=== PATIENT | male | born 1965 | race Caucasian/White ===

== ENCOUNTER 2018-01-09 06:06 | Day surgery (SDC) | payer BC ==
[~2018-01-09] VITALS: Ht 185.4 cm; Wt 117.4 kg
[~2018-01-09 06:06] MED LIST: ASPIRIN E.C. 8181 MG PO; FOLIC ACID0.4 MG PO; HYZAAR 12.5 MG-1 TAB PO; HYZAAR 25 MG-101 TAB PO; INDERAL 20MG20 MG PO; IRON325 M1 PO; NORCO 325 MG-7.1 TAB PO; NORVASC 5MG5 MG/TAB PO; PRILOSEC 20MG20 MG PO; TOPROL XL 50MG50 MG PO; TOPROL XL100 MG PO; ULTRAM 50MG TAB50 MG PO; VASOTEC 5MG5 MG/TAB PO; VITAMIN C500 MG PO
[2018-01-09 06:27] VITALS: BP 151/95; PULSE 77; TEMP 97.3
[2018-01-09] MEDS ORDERED: COZAAR100 MG PO (06:27)
[2018-01-09 07:25] VITALS: BP 138/92; PULSE 76; TEMP 97.5
[2018-01-09 07:40] VITALS: BP 136/85; PULSE 73
[2018-01-09 07:55] VITALS: BP 132/87; PULSE 72
== END 2018-01-09 08:10 | disposition home or self-care (01) ==
LOC: SDCO 06:06
DX: Z12.11 Encounter for screening for malignant neoplasm of colon (principal); K64.1 Second degree hemorrhoids; K57.30 Diverticulosis of large intestine without perforation or abscess without bleeding; K21.9 Gastro-esophageal reflux disease without esophagitis; Z88.6 Allergy status to analgesic agent; Z80.0 Family history of malignant neoplasm of digestive organs
CPT/HCPCS: J2250; J3010; J7030

== ENCOUNTER 2018-11-18 19:42 | Emergency (ER) | payer BC ==
[~2018-11-18] VITALS: Ht 185.4 cm; Wt 112.3 kg
[~2018-11-18 19:42] MED LIST changes: +COZAAR100 MG PO
[2018-11-18 20:14] VITALS: BP 147/73; PULSE 88; TEMP 97.9
== END 2018-11-18 22:00 | disposition home or self-care (01) ==
LOC: COL.ER 19:42 → EDSTATUS 19:58 → COL.ER 22:00
DX: Z20.3 Contact with and (suspected) exposure to rabies (principal); Z23 Encounter for immunization
CPT/HCPCS: 90375

== ENCOUNTER 2018-12-02 18:38 | Outpatient (RCR) | payer BC ==
[~2018-12-02] VITALS: Ht 185.4 cm; Wt 112.3 kg
[2018-12-02 19:39] VITALS: BP 160/82; PULSE 70; TEMP 98.5
== END 2019-02-19 | disposition home or self-care (01) ==
LOC: EUO
DX: Z23 Encounter for immunization (principal)

== ENCOUNTER → 2020-05-15 | Outpatient (CLI) | payer BC | LOC: COL.LAB 10:03 | DX: Z20.822 Contact with and (suspected) exposure to COVID-19 (principal) ==

== ENCOUNTER 2023-11-04 23:05 | Inpatient (IN) | payer BC ==
[~2023-11-04] VITALS: Ht 185.4 cm; Wt 115.1 kg
[2023-11-04] MEDS ORDERED: CEFTIN500 MG PO (23:14)
[2023-11-04] MEDS ORDERED: TOPROL XL100 MG PO (23:15)
[2023-11-04] MEDS ORDERED: XARELTO20 MG PO (23:15)
[2023-11-04] MEDS ORDERED: dilTIAZem 25 MG/5 ML VIAL IV ONE (23:30)
[2023-11-04] MEDS ORDERED: NS 1,000 ML IV ONE (23:30)
[2023-11-04 23:38] LABS: BASO % 0.2 % (0.0-2.0); EOS # 0.1 K/mm3 (0.0-0.7); EOS % 0.5 % (0.0-4.0); GRAN % 82.9 % (42.2-75.2); HEMOGLOBIN 17.2 g/dl (13.5-18.0); LYMPH # 1.2 K/mm3 (1.2-3.4); LYMPH % 9.6 % (20.0-51.0); MEAN CELL VOLUME 88 fl (80.0-100.0); MEAN CORPUSCULAR HEMOGLOBIN 29 pg (27-31); MEAN CORPUSCULAR HGB CONC 33 g/dl (33.0-37.0); MEAN PLATELET VOLUME 11.5 fl (7.4-10.4); MONO # 0.8 K/mm3 (0.1-0.6); MONO % 6.5 % (1.7-9.3); PLATELET COUNT 254 K/mm3 (130-400); RED BLOOD COUNT 5.92 M/mm3 (4.20-5.60); REDCELL DISTRIBUTION WIDTH-CV 13.9 % (11.5-14.5)
[2023-11-05] VITALS (13 sets, daily range): BP systolic 104–128; BP diastolic 68–81; PULSE 60–99; TEMP 97.5–98.5
[2023-11-05] LABS: ALBUMIN 3.3 g/dL (3.4-4.8); BILIRUBIN,TOTAL 1.3 mg/dL (0.2-1.2); CALCIUM 9.2 mg/dL (8.4-10.2); CREATININE, serum 1.46 mg/dL (0.72-1.25); POTASSIUM 3.5 mEq/L (3.5-4.5); TOTAL PROTEIN 7.1 g/dl (6.2-8.1)
[2023-11-05 00:05] LABS: TROPONIN-I 0.013 ng/mL (0.00-0.033)
[2023-11-05] MEDS ORDERED: dilTIAZem 25 MG/5 ML VIAL IV ONE (01:00)
[2023-11-05] MEDS ORDERED: NS 500 ML IV ONE (01:15)
[2023-11-05] MEDS ORDERED: Iohexol 300 - 100 ML VIAL IV ONE (01:34)
[2023-11-05] MEDS ORDERED: Morphine 4 MG/ML VIAL IV PRN (03:00)
[2023-11-05] MEDS ORDERED: Acetaminophen 325 MG TAB PO PRN (03:00)
[2023-11-05] MEDS ORDERED: Magnesium Sulfate 4% 50 ML IV ONE (03:00)
[2023-11-05] MEDS ORDERED: NS 1,000 ML IV SCH (03:00)
[2023-11-05] MEDS ORDERED: Ondansetron 4 MG/2 ML VIAL IV PRN (03:00)
[2023-11-05] MEDS ORDERED: Heparin 5,000 UNITS/ML 1 ML VIAL IV ONE (03:45)
[2023-11-05] MEDS ORDERED: Heparin/D5W 250 ML IV SCH (03:45)
[2023-11-05] MEDS ORDERED: Heparin 5,000 UNITS/ML 1 ML VIAL IV PRN (03:45)
[2023-11-05] MEDS ORDERED: cefTRIAXone 1 G in Water For Injection,Sterile 10 ML IV SCH (04:00)
[2023-11-05 04:01] LABS: PARTIAL THROMBOPLASTIN TIME 39.3 SECONDS (26.0-37.0)
[2023-11-05 04:23] LABS: PH 5.5 (5.0-8.5); URINE APPEARANCE CLEAR (CLEAR/HAZY); URINE BLOOD 1+ (NEGATIVE); URINE COLOR YELLOW (YELLOW); URINE GLUCOSE NEGATIVE (NEGATIVE); URINE KETONE TRACE (NEGATIVE); URINE NITRATE NEGATIVE (NEGATIVE); URINE PROTEIN(semi-quant) NEGATIVE (NEGATIVE); URINE UROBILINOGEN 0.2 E.U/dL (0.2-1.0)
[2023-11-05 04:53] LABS: COLLECTION METHOD CLEAN CATCH
--- NOTE | 2023-11-05 05:35 | NUR ---
REPORT RECIEVED FROM ANA IN ER AT THIS TIME.
--- NOTE | 2023-11-05 05:50 | NUR ---
MALE PATIENT ARRIVED TO ROOM #318 VIA STRETCHER. PATIENT ASSISTED TO SCOOT OVER TO BED. TELEMETRY INTACT. CARDIZEM INFUSING INTO LEFT AC WITH MAGNESIUM Y SITED IN. HEPARIN INFUSING INTO RIGHT FOREARM WITH NS INFUSING VIA DIAL A FLOW Y SITE IN. PATIENT PLACED ON 2 LITERS OF OXYGEN. PATIENT C/O SHORTNESS OF AIR AND NOT BEING ABLE TO CATCH HIS BREATH. RESPIRATORY NOTIFIED. INITAL INTAKE AND ASSESSMENT COMPLETED AT THIS TIME. PATIENT TOLERATED WELL. PATIENT GIVEN MOUTH SWABS AND SMALL CUP OF WATER TO SWAB MOUTH DUE TO PATIENT C/O DRY MOUTH. PATIENT DENIES ANY OTHER NEED. BED IN LOW POSITION WITH WHEELS LOCKED WITH RAILS UP X3 AND CALL LIGHT WITHIN REACH.
[2023-11-05] MEDS ORDERED: HCTZ12.5TAB PO (06:18)
[2023-11-05] MEDS ORDERED: NORVASC 10MG10 MG PO (06:20)
[2023-11-05] MEDS ORDERED: LIPITOR 10MG10 MG PO (06:23)
[2023-11-05] MEDS ORDERED: BLINK TEARS15 ML OU (08:25)
[2023-11-05] MEDS ORDERED: Sennosides/Docusate 8.6-50 MG TAB PO SCH (09:00)
--- NOTE | 2023-11-05 09:15 | NUR ---
Alexia Martinez, RN notified that patient converted to NSR. Rec'd new order. Adriana gtt d/c'd.
--- NOTE | 2023-11-05 09:17 | NUR ---
Initial visit; Patient thanked Technology Sales Specialist for looking in on him and offering Spiritual Care. Patient states he just arrived last night so is waiting to see a Physician and is undergoing some testing to discern what is causing him distress. Technology Sales Specialist will keep Keagan in her prayers and offered God's blessings.
--- NOTE | 2023-11-05 11:00 | NUR ---
Assessment complete. NPO for conrad scan. IVF and Heparin infusing per MD order. at bedside.
--- NOTE | 2023-11-05 14:00 | NUR ---
Pt to Nuclear Med for Ruth Scan via w/c.
--- NOTE | 2023-11-05 14:27 | NUR ---
bingo worker met with patient, patient's , Lily (P# [phone]), and other family members to discuss discharge planning. Patient lives in [place] with his . PCP is Dr. Rucker, Pharmacy is [facility]. No issues affording medications. Insurance is [facility]. No DPOA-HC and not currently interested in completing one. DME is cane and walker as patient had hip surgery in July. Patient reports to be independent with ADLS and has a form of transportation to get to and from appointments. Patient would like to return home at time of discharge. Discharge plan: Home
--- NOTE | 2023-11-05 15:00 | NUR ---
Pt to Nuclear Med via w/c for Ruth Scan.
[2023-11-05] MEDS ORDERED: Regadenoson 0.08 MG/ML 5 ML SYRINGE IV SCH (15:07)
--- NOTE | 2023-11-05 16:26 | NUR ---
Pt returned to room from Nuclear Medicine at approximately 1600. Heparin gtt restarted- rate increased per protocol. NS restarted as ordered. Pt remains NPO at this time. at bedside.
--- NOTE | 2023-11-05 17:10 | NUR ---
Ag Service Manager calls to report that patient converted to afib and back to NSR within [address] Beltrán notified of rhythm change. Order rec'd to d/c heparin- heparin d/c'd. Order rec'd to restart xarelto. Requested diet order, order rec'd for AHA diet. Pt sitting up in chair. at bedside.
--- NOTE | 2023-11-05 19:10 | NUR ---
PATIENT SITTING UP IN BEDSIDE RECLINER WITH TV ON WITH NO FAMILY PRESENT WITH NO ACUTE DISTRESS NOTED. PATIENT ON ROOM AIR. NS INFUSING INTO LEFT AC WITH NO COMPLICATIONS NOTED. RIGHT FOREARM INT INTACT WITH NO COMPLICATIONS NOTED. TELEMETRY INTACT. BEDSIDE SHIFT REPORT COMPLETED WITH JEFF AT THIS TIME. PATIENT DENIES ANY NEEDS. RECLINER LOCKED AND CALL LIGHT WITHIN REACH.
--- NOTE | 2023-11-05 21:27 | NUR ---
PATIENT SITTING UP IN BEDSIDE RECLINER WITH TV ON WITH NO FAMILY PRESENT WITH NO ACUTE DISTRESS NOTED. PATIENT ON ROOM AIR. NS INFUSING INTO LEFT AC WITH NO COMPLICATIONS NOTED. INT TO RIGHT FA WITH NO COMPLICATIONS NOTED. TELEMETRY INTACT. ASSESSMENT AND MEDICATION ADMINISTRATION COMPLETED AT THIS TIME. PATIENT TOLERATED WELL. PATIENT REQUESTED A SPRITE AND WAS GIVEN. ALL NEEDS MET. RECLINER LOCKED AND CALL LIGHT WITHIN REACH.
--- NOTE | 2023-11-05 22:14 | NUR ---
PATIENT CONVERTED TO A FLUTTER PER SAULO FILM SORTER AT THIS TIME.
[2023-11-06] VITALS (17 sets, daily range): BP systolic 120–140; BP diastolic 71–109; PULSE 76–136; TEMP 97.7–98.3
--- NOTE | 2023-11-06 06:00 | NUR ---
PATIENT HEART RATED RANGED FROM 109-140'S DURING THE NIGHT ON TELEMETRY.
--- NOTE | 2023-11-06 07:11 | NUR ---
awake and up in room independently, bedside shift report received from NHI Garcia
[2023-11-06 07:20] LABS: CALCIUM 8.5 mg/dL (8.4-10.2); CHOLESTEROL RISK RATIO 7.7; CREATININE, serum 0.95 mg/dL (0.72-1.25); MAGNESIUM 2.2 mg/dL (1.6-2.6)
--- NOTE | 2023-11-06 07:40 | NUR ---
BP 140/109, PRETZEL COOKER rechecked and now it is 120/90
[2023-11-06 07:43] LABS: BASO % 0.5 % (0.0-2.0); EOS # 0.2 K/mm3 (0.0-0.7); EOS % 2.9 % (0.0-4.0); GRAN # 4.5 K/mm3 (1.4-6.5); GRAN % 72.9 % (42.2-75.2); HEMATOCRIT 45.6 % (42.0-52.0); LYMPH # 0.9 K/mm3 (1.2-3.4); LYMPH % 15.1 % (20.0-51.0); MEAN CELL VOLUME 89 fl (80.0-100.0); MEAN CORPUSCULAR HEMOGLOBIN 29 pg (27-31); MEAN CORPUSCULAR HGB CONC 32 g/dl (33.0-37.0); MEAN PLATELET VOLUME 11.8 fl (7.4-10.4); MONO # 0.5 K/mm3 (0.1-0.6); MONO % 8.1 % (1.7-9.3); PLATELET COUNT 178 K/mm3 (130-400); RED BLOOD COUNT 5.12 M/mm3 (4.20-5.60); REDCELL DISTRIBUTION WIDTH-CV 13.8 % (11.5-14.5)
[2023-11-06 07:47] LABS: HEMOGLOBIN 14.7 g/dl (13.5-18.0)
--- NOTE | 2023-11-06 08:15 | NUR ---
full assessment completed, see interventions for further info
--- NOTE | 2023-11-06 08:24 | NUR ---
commercial hvac service technician calls this nurse while in the patient's room and reports his heart rate is in the 140s, given his am meds to include tambacor at this time, STAR Urbina notified of high heart rate
--- NOTE | 2023-11-06 08:29 | NUR ---
Alexia, RN with Dr Oden called this nurse regarding patient's heart rate, will make NPO at this time,
[2023-11-06] MEDS ORDERED: TAMBOCOR 1100 MG/TAB PO (09:34)
[2023-11-06 09:45] LABS: THYROID STIMULATING HORMONE 1.586 uIU/mL (0.350-4.940)
--- NOTE | 2023-11-06 10:13 | NUR ---
Follow-up visit; Patient disgruntled about having to stay longer than he had planned due to medication issues, he states. Gas Station Operator attempted to steer him toward being Thankful that he is doing well, he will recover where some folks won't and he is where he is well taken care of with good Physicians and Nurses. Patient may have taken note as he was somewhat grouchy when Gas Station Operator offered God's blessings before she left.
--- NOTE | 2023-11-06 10:23 | NUR ---
Claudia, RN nursing materials management supervisor notified of MEWS score of 3
--- NOTE | 2023-11-06 11:10 | NUR ---
AIMEE called this nurse after completing his vital signs and his MEWS score is now 4, entered room and when asked patietn how he was doing he stated he was feeling pretty good, he is alert and oriented and resting in bed, denies any chest pain or shortness of breath, also notified NHI James, hospitalist and retort condenser attendant are both aware of patient's heart rate being elevated in the 130s to 140s
--- NOTE | 2023-11-06 13:10 | NUR ---
resting in bed with eyes closed
--- NOTE | 2023-11-06 15:30 | NUR ---
sitting up in chair, states he spoke with bloom conveyor operator and understands the plan for cardioversion and then increasing flecanide dose, denies needs at this time
--- NOTE | 2023-11-06 16:29 | NUR ---
mail technician called and asked this nurse to check on patient right away, heart rate back in the 140s, he is resting in bed, he had been up to bathroom when they called, denies shortness of breath or chest pain
--- NOTE | 2023-11-06 16:34 | NUR ---
to gold leaf laborer for cardioversion
[2023-11-06] MEDS ORDERED: Lidocaine PF 2% (20 MG/ML) 5 ML VIAL ONE (16:43)
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
--- NOTE | 2023-11-06 17:50 | NUR ---
Keagan transferred back to medical 318 after cardioversion [address] dr. Oden. Keagan is awake and alert, pwd with reg and unlabored respirations. BS report and handoff of care to Grisel HANKINS.
--- NOTE | 2023-11-06 18:05 | NUR ---
sitting up in bed and supper here, preparing to eat
--- NOTE | 2023-11-06 18:48 | NUR ---
bedside shift report given to NHI Garcia
--- NOTE | 2023-11-06 18:49 | NUR ---
had supper and tolerated well, denies pain or needs
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
[2023-11-06] MEDS ORDERED: Atorvastatin 10 MG TAB PO SCH (21:00)
[2023-11-07] VITALS (7 sets, daily range): BP systolic 123–151; BP diastolic 77–87; PULSE 67–81; TEMP 97.9–98.5
[2023-11-07 07:38] LABS: BASO % 0.5 % (0.0-2.0); EOS # 0.2 K/mm3 (0.0-0.7); EOS % 3.8 % (0.0-4.0); GRAN # 4.4 K/mm3 (1.4-6.5); GRAN % 72.8 % (42.2-75.2); HEMATOCRIT 45.6 % (42.0-52.0); HEMOGLOBIN 14.9 g/dl (13.5-18.0); MEAN CELL VOLUME 88 fl (80.0-100.0); MEAN CORPUSCULAR HEMOGLOBIN 29 pg (27-31); MEAN CORPUSCULAR HGB CONC 33 g/dl (33.0-37.0); MEAN PLATELET VOLUME 11.2 fl (7.4-10.4); MONO # 0.3 K/mm3 (0.1-0.6); MONO % 5.6 % (1.7-9.3); PLATELET COUNT 209 K/mm3 (130-400); RED BLOOD COUNT 5.16 M/mm3 (4.20-5.60); REDCELL DISTRIBUTION WIDTH-CV 13.6 % (11.5-14.5)
[2023-11-07 08:06] LABS: CALCIUM 8.9 mg/dL (8.4-10.2); CREATININE, serum 1.16 mg/dL (0.72-1.25)
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
[2023-11-07] MEDS ORDERED: TAMBOCOR 1100 MG/TAB PO (10:40)
--- NOTE | 2023-11-07 11:24 | NUR ---
Discharge orders rec'd. INT to LAC d/c'd with cath tip intact. Tele d/c'd. Pt wishes to shower and eat lunch before discharging.
--- NOTE | 2023-11-07 13:23 | NUR ---
Discharge instructions reviewed with patient- verbalizes understanding. Patient waiting on spouse.
--- NOTE | 2023-11-07 14:00 | NUR ---
Pt escorted to private vehicle via w/c and discharged home with spouse.
== END 2023-11-07 14:00 | disposition home or self-care (01) | DRG 871 ==
LOC: COL.ER 23:05 → MEDICAL 11-05 02:57
PROVIDERS: Emergency Medicine; Physician Assistant; ADMIT Hospitalist
PROC: 5A2204Z Restoration of Cardiac Rhythm, Single (ICD-10-PCS; principal; 2023-11-07)
DX: A41.9 Sepsis, unspecified organism (principal); J96.01 Acute respiratory failure with hypoxia; I48.92 Unspecified atrial flutter; N39.0 Urinary tract infection, site not specified; N17.9 Acute kidney failure, unspecified; Z96.612 Presence of left artificial shoulder joint; R91.8 Other nonspecific abnormal finding of lung field; R79.89 Other specified abnormal findings of blood chemistry; E86.0 Dehydration; I10 Essential (primary) hypertension; I48.0 Paroxysmal atrial fibrillation; I44.0 Atrioventricular block, first degree; I34.0 Nonrheumatic mitral (valve) insufficiency; M19.90 Unspecified osteoarthritis, unspecified site; J84.10 Pulmonary fibrosis, unspecified; Z96.611 Presence of right artificial shoulder joint; Z96.641 Presence of right artificial hip joint; E78.5 Hyperlipidemia, unspecified; Z88.8 Allergy status to other drugs, medicaments and biological substances; Z79.899 Other long term (current) drug therapy; Z79.82 Long term (current) use of aspirin; Z79.01 Long term (current) use of anticoagulants
CPT/HCPCS: A9500-JZ; J0696; J1644; J2704; J2785; J3475; J7030; J7040; Q9967